=== PATIENT | male | born 1960 | race Caucasian/White ===

== ENCOUNTER 2016-07-05 16:00 | Emergency (ER) | payer MEDICARE ==
[~2016-07-05] VITALS: Ht 182.9 cm; Wt 104.3 kg
[~2016-07-05 16:00] MED LIST: ALDACTONE25 MG PO; ASPIRIN81 MG PO; CENTRUM COMPLE1 EACH PO; CITRATE OF MAG296 ML PO; COZAAR25 MG PO; FISH OIL1 GM PO; PRILOSEC40 MG PO; SAW PALMETTO450 MG PO; SUPER B COMPLE150 MG PO; TOPROL XL100 MG PO; VITAMIN C500 MG PO; VITAMIN D31000 UNI1 PO
[2016-07-05] MEDS ORDERED: LEVAQUIN500 MG PO (16:52)
[2016-07-05] MEDS ORDERED: HYDROCODON-ACE1 EAC6 PO (16:53)
== END 2016-07-05 17:45 | disposition short-term general hospital (02) ==
LOC: ER 16:00
DX: R10.11 Right upper quadrant pain (principal); R10.13 Epigastric pain; C22.1 Intrahepatic bile duct carcinoma; K80.20 Calculus of gallbladder without cholecystitis without obstruction
CPT/HCPCS: J1170; J2405

== ENCOUNTER → 2016-08-01 | Outpatient (CLI) | payer MEDICARE ==
[~2016-08-01] MED LIST changes: +HYDROCODON-ACE1 EAC6 PO; +LEVAQUIN500 MG PO
== END | disposition short-term general hospital (02) ==
LOC: CLCARD 08:39
DX: I42.9 Cardiomyopathy, unspecified (principal); I50.42 Chronic combined systolic (congestive) and diastolic (congestive) heart failure; G47.33 Obstructive sleep apnea (adult) (pediatric)